=== PATIENT | female | born 1965 | race American Indian/Alaskan Native ===

== ENCOUNTER 2020-01-25 15:14 | Emergency (ER) | payer MEDICAID ==
[2020-01-25 16:12] LABS: Bacteria,Urine 2+ /HPF (Negative); Bilirubin,Urine NEG (Negative); Blood,Urine SM (Negative); Color,Urine Yellow (Yellow); Mucus,Urine FEW /HPF; Protein,Urine <15 mg/dL mg/dL (Negative); Urobilinogen,Urine < 2.0 mg/dL (<2.0)
[2020-01-25 16:19] LABS: Basophils # (Auto) 0.1 K/mm3 (0.0-0.1); Basophils % (Auto) 0.8 % (0.0-1.8); Eosinophils # (Auto) 0.1 K/mm3 (0.0-0.4); Eosinophils % (Auto) 0.8 % (0.0-4.3); Hematocrit 35.4 % (30.3-42.9); Hemoglobin 11.3 gm/dl (10.1-14.3); Lymphocytes # (Auto) 2.3 K/mm3 (1.2-5.4); Mean Corpuscular HGB Conc 32 % (30-34); Mean Corpuscular Volume 86 fl (79-97); Monocytes # (Auto) 0.4 K/mm3 (0.0-0.8); Monocytes % (Auto) 6.6 % (0.0-7.3); Platelet Count 224 K/mm3 (140-440); Red Blood Count 4.11 M/mm3 (3.65-5.03); Red Cell Distribution Width 15.5 % (13.2-15.2)
--- NOTE | 2020-01-25 16:19 | Emergency Department Report ---
ED Psych HPI - General Stated Complaint: MENTAL HEALTH Time Seen by Provider: 01/25/20 15:50 Source: patient - History of Present Illness Initial Comments: 54-year-old female with a history of depression, OCD, trichotillomania, presents to ED on a 1013 for suicidal ideations. Patient works as a psychotherapist. She reports that she has not received her check from work in 8 weeks, and became angry with her boss. Patient states she made the statement that she wanted to shoot herself. Patient states she told her boss that she did have a gun in her purse, which was taken from her. Patient states she never threatened staff or anyone else. Patient states she now regrets making the statement. Patient was placed on a 1013 and transported to the ED. Per police, patient took her gun out and waved it around, also threatening staff. Patient denies threatening others. MD Complaint: suicidal ideation -: This afternoon Associated Psychiatric Symptoms: suicidal ideation Quality: resolved prior to arrival Improves With: none Worsens With: none Context: significant life stressor Associated Symptoms: denies other symptoms Treatments Prior to Arrival: placed on mental he If Self Harm: has plan ("to blow her head off" per 1013) - Related Data Home Medications Medication Instructions Recorded Confirmed Last Taken Dextroamphetamine/Amphetamine 30 mg PO DAILY 01/25/20 01/25/20 Unknown [Adderall] FLUoxetine [PROzac] 20 mg PO BID 01/25/20 01/25/20 Unknown QUEtiapine [SEROquel] 200 mg PO QHS 01/25/20 01/25/20 Unknown clonazePAM [KlonoPIN] 1 mg PO QHS 01/25/20 01/25/20 Unknown Allergies Allergy/AdvReac Type Severity Reaction Status Date / Time No Known Allergies Allergy Unverified 01/25/20 19:29 ED Review of Systems ROS: Stated complaint: MENTAL HEALTH Other details as noted in HPI Comment: All other systems reviewed and negative Psychiatric: suicidal thoughts. denies: auditory hallucinations, visual hallucinations, homicidal thoughts ED Past Medical Hx - Medications Home Medications: Home Medications Medication Instructions Recorded Confirmed Last Taken Type Dextroamphetamine/Amphetamine 30 mg PO DAILY 01/25/20 01/25/20 Unknown History [Adderall] FLUoxetine [PROzac] 20 mg PO BID 01/25/20 01/25/20 Unknown History QUEtiapine [SEROquel] 200 mg PO QHS 01/25/20 01/25/20 Unknown History clonazePAM [KlonoPIN] 1 mg PO QHS 01/25/20 01/25/20 Unknown History ED Physical Exam - General General appearance: alert, in no apparent distress - Head Head exam: Present: atraumatic, normocephalic - Eye Eye exam: Present: normal appearance - ENT ENT exam: Present: mucous membranes moist - Neck Neck exam: Present: normal inspection - Respiratory Respiratory exam: Present: normal lung sounds bilaterally. Absent: respiratory distress - Cardiovascular Cardiovascular Exam: Present: regular rate, normal rhythm - GI/Abdominal GI/Abdominal exam: Present: soft. Absent: distended, tenderness - Extremities Exam Extremities exam: Present: normal inspection - Neurological Exam Neurological exam: Present: alert, oriented X3 - Psychiatric Psychiatric exam: Present: normal affect, normal mood - Skin Skin exam: Present: warm, dry, intact, normal color ED Course Vital Signs 01/25/20 01/25/20 01/26/20 16:27 20:01 02:00 Temperature 97.6 F 98.4 F 97.7 F Pulse Rate 81 79 73 Respiratory 20 16 16 Rate Blood Pressure 134/85 121/86 110/69 [Left] O2 Sat by Pulse 100 100 98 Oximetry 01/26/20 08:00 Temperature 97.7 F Pulse Rate 86 Respiratory 18 Rate Blood Pressure 114/88 [Left] O2 Sat by Pulse 98 Oximetry ED Medical Decision Making - Lab Data Result diagrams: 01/25/20 16:02 01/25/20 16:02 - Medical Decision Making 54 yo F presents to ED on a 1013 after threatening to shoot herself and staff at her place of employment. Patient is medically clear for mental health evaluation. Will dispo per psych. Critical care attestation.: If time is entered above; I have spent that time in minutes in the direct care of this critically ill patient, excluding procedure time. ED Disposition Clinical Impression: Suicidal ideation Disposition: [id number] PSY HOSP/PSY UNIT Is pt being admited?: No Condition: Stable Referrals: [facility] [Other] - 3-5 Days
[2020-01-25 16:20] LABS: Amphetamine Screen,Urine PRESUMPTIVE NEGATIVE; Benzodiazepines Screen,Urine PRESUMPTIVE NEGATIVE; Cocaine Screen,Urine PRESUMPTIVE NEGATIVE; Methadone Screen,Urine PRESUMPTIVE NEGATIVE; Opiate Screen,Urine PRESUMPTIVE NEGATIVE
[2020-01-25 16:31] LABS: Cannabinoid Screen,Urine PRESUMPTIVE POSITIVE
[2020-01-25 16:33] LABS: BUN/Creatinine Ratio 12; Blood Urea Nitrogen 7 mg/dL (7-17); Calcium 8.9 mg/dL (8.4-10.2); Hemolysis Index 7
[2020-01-25] MEDS ORDERED: FLUoxetine 20 MG CAP ONE (21:53)
[2020-01-25] MEDS ORDERED: clonazePAM 0.5 MG TAB PO SCH (22:00)
[2020-01-25] MEDS ORDERED: FLUoxetine 20 MG CAP PO SCH ×2 (22:00)
[2020-01-25] MEDS ORDERED: QUEtiapine 200 MG TAB PO SCH (22:00)
[2020-01-26 09:52] VITALS: BP 114/88
[2020-01-26] MEDS ORDERED: NICOTINE 14 MG/24 HR PATCH TD ONE (10:00)
== END 2020-01-26 10:15 ==
LOC: ED 15:14
DX: R45.851 Suicidal ideations (principal); Z79.899 Other long term (current) drug therapy
CPT/HCPCS: 36415; 80048; 80307; 80320; 81001; 85025; G0480